=== PATIENT | female | born 1950 | race Asian ===

== ENCOUNTER 2016-09-14 20:38 | Inpatient (IN) | payer MEDICAID ==
--- NOTE | 2016-09-14 21:32 | ED Physician Chart ---
Chief Complaint/HPI - Patient Information Date Seen:: 09/14/16 Time Seen:: 21:28 Chief Complaint:: gi bleed History of Present Illness:: pt sent in by dr solano. pt has had 2 episodes today of bright red blood . 1x this evening of lrg bm/ incontinence of bloody material. also 1x this am they found blood on wall and wondered if she might have had emesis but cant get clear story. pt was seen and evald at [facility] 2 days ago but was released to home. no recent fever, no uri sx. no cp. no sob. pt has DM but is often noncompliant w her metformin due to it causes palpitations. Allergies:: Allergies Allergy/AdvReac Type Severity Reaction Status Date / Time No Known Allergies Allergy Verified 09/14/16 20:43 Vitals:: Vital Signs - 8 hr 09/14/16 20:40 Temp 99.1 F HR 98 RR 18 BP 112/66 O2 Sat % 96 Historian:: Patient, Other Review of Systems - Review of Systems General/Constitutional: No fever, No chills, No weight loss, Weakness, No diaphoresis, No edema, No loss of appetite Skin: No skin lesions, No rash, No bruising Head: No headache, No light-headedness Eyes: No loss of vision, No pain, No diplopia ENT: No earache, No nasal drainage, No sore throat, No tinnitus Neck: No neck pain, No swelling, No thyromegaly, No stiffness, No mass noted Cardio Vascular: No chest pain, No palpitations, No PND, No orthopnea, No edema Pulmonary: No SOB, No cough, No sputum, No wheezing GI: No nausea, No vomiting, No diarrhea, No pain, No melena, Hematochezia, No constipation, No hematemesis G/U: No dysuria, No frequency, No hematuria Musculoskeletal: No bone or joint pain, No back pain, No muscle pain Endocrine: No polyuria, No polydipsia Psychiatric: No prior psych history, No depression, No anxiety, No suicidal ideation Hematopoietic: No bruising, No lymphadenopathy Allergic/Immuno: No urticaria, No angioedema Neurological: No syncope, No focal symptoms, No weakness, No paresthesia, No headache, No seizure, No dizziness, No confusion, No vertigo Past Medical History - Past Medical History Past Medical History: HTN, DM, Dyslipidemia Social History: Other (lives home//has caregiveer) Psychiatricy History: Schizophrenia, Bipolar Medication: Reviewed Family Medical History - Family Member Mother History Unknown: Yes Ethnicity: Non- Living Status: Unknown Hx Family Cancer: No Hx Family Coronary Artery Disease: No Hx Family Congestive Heart Failure: No Hx Family Hypertension: No Hx Family Stroke: No Hx Family Diabetes: No Hx Family Seizures: No Hx Family Dementia: No Hx Family AIDS: No Hx Family HIV: No Hx Family COPD: No Hx Family Hepatitis: No Hx Family Psychiatric Problems: No Hx Family Tuberculosis: No Physical Exam - Physical Examination General/Constitutional: Awake, Well-developed, well-nourished, Alert, No distress, GCS 15, Non-toxic appearing, Ambulatory Head: Atraumatic Eyes: Lids, conjuctiva normal, PERRL, EOMI Skin: Nl inspection, No rash, No skin lesions, No ecchymosis, Well hydrated, No lymphadenopathy ENMT: External ears, nose nl, Nasal exam nl, Lips, teeth, gums nl Neck: Nontender, Full ROM w/o pain, No JVD, No nuchal rigidity, No bruit, No mass, No stridor Respiratory: Nl effort/Exclusion, Clear to Auscultation, No Wheeze/Rhonchi/Rales Cardio Vascular: RRR, No murmur, gallop, rubs, NL S1 S2 GI: No tenderness/rebounding/guarding, No organomegaly, No hernia, Normal BS's, Nondistended, No mass/bruits, No McBurney tenderness : No CVA tenderness Extremities: No tenderness or effusion, Full ROM, normal strength in all extremities, No edema, Normal digits & nails Neuro/Psych: Alert/oriented, DTR's symmetric, Normal sensory exam, Normal motor strength, Judgement/insight normal, Mood normal, Normal gait, No focal deficits Other Neuro/Psych comments:: pt speaks no/min bengali but is baseline per caregiver. Misc: normal gait, Normal back, No paraspinal tenderness Labs/Radiology/EKG Results - Lab Results Results: Laboratory Tests 09/14/16 09/14/16 09/14/16 21:38 21:38 21:38 WBC 5.9 RBC 3.46 L Hgb 10.2 L Hct 31.0 L MCV 89.5 MCH 29.4 MCHC Differential 32.8 RDW 13.7 Plt Count 241 MPV 7.3 Neutrophils % 72.2 Lymphocytes % 15.8 L Monocytes % 10.3 H Eosinophils % 0.8 Basophils % 0.9 PT 10.0 INR 0.96 PTT (Actin FS) 29.0 Sodium 134 L Potassium 4.2 Chloride 109 H Carbon Dioxide 22.6 Anion Gap 6.6 L BUN 15 Creatinine 0.8 Est GFR ( Amer) > 60.0 Est GFR (Non-Af Amer) > 60.0 BUN/Creatinine Ratio 18.8 Glucose 121 H Calcium 9.3 Total Bilirubin 0.2 L AST 22 ALT 11 Alkaline Phosphatase 40 Troponin I Total Protein 6.3 Albumin 3.9 Globulin 2.4 Albumin/Globulin Ratio 1.6 Blood Type Antibody Screen 09/14/16 09/14/16 21:38 21:38 WBC RBC Hgb Hct MCV MCH MCHC Differential RDW Plt Count MPV Neutrophils % Lymphocytes % Monocytes % Eosinophils % Basophils % PT INR PTT (Actin FS) Sodium Potassium Chloride Carbon Dioxide Anion Gap BUN Creatinine Est GFR ( Amer) Est GFR (Non-Af Amer) BUN/Creatinine Ratio Glucose Calcium Total Bilirubin AST ALT Alkaline Phosphatase Troponin I 0.02 Total Protein Albumin Globulin Albumin/Globulin Ratio Blood Type AB POSITIVE Antibody Screen NEGATIVE - EKG Interpretations EKG Time:: 21:40 Rate & Rhythm: nsr 90 Haslett: 25 Intervals: qrs 410 Comments:: interventric cond delay w T inversions across whole precordium...could be developing LBBB but not typical (trop added to labs to r/o acute ischemia , though clinical hx doesnt seem likely scenario) Assessment - Assessment Critical Care Time: 90 Excludes all billable procedures: Yes This condition life threatening/high prob of deterioration: Yes ED Septic Shock - . Is Septic Shock (SBP<90, OR Lactate>4 mmol\L) present?: No - <6hrs of presentation: Vital Signs: Vital Signs - 8 hr 09/14/16 20:40 Temp 99.1 F HR 98 RR 18 BP 112/66 O2 Sat % 96 Reassessment (Disposition) - Reassessment Reassessment:: case dw dr miller will admit. (1;43am) Reassessment Condition:: Unchanged - Diagnosis Diagnosis:: gi bleed - Patient Disposition Admitted to:: Telemetry Condition at Disposition:: Unchanged
[2016-09-14 21:48] LABS: % BASOPHILS 0.9 % (0.0-2.0); % EOSINOPHILS 0.8 % (0.0-5.0); % LYMPHOCYTES 15.8 % (20.0-50.0); % MONOCYTES 10.3 % (2.0-10.0); % NEUTROPHILS 72.2 % (40.0-80.0); HEMOGLOBIN 10.2 gm/dL (11.7-15.5); MEAN CELL VOLUME 89.5 fl (81-100); MEAN CORPUSCULAR HEMOGLOBIN 29.4 pg (27.0-31.0); MEAN CORPUSCULAR HGB CONC 32.8 pg (28.0-36.0); MEAN PLATELET VOLUME 7.3 fl; NEUTROPHILE ABSOLUTE 4.3 Th/cmm (1.8-8.0); PLATELET COUNT 241 Th/cmm (150-400); RED BLOOD COUNT 3.46 Mil/cmm (3.80-5.10); RED CELL DISTRIBUTION WIDTH 13.7 % (11.5-20.0); WHITE BLOOD COUNT 5.9 Th/cmm (4.8-10.8)
[2016-09-14 22:05] LABS: ALB/GLOB RATIO 1.6 (1.0-1.8); ALKALINE PHOSPHATASE 40 U/L (34-104); ANION GAP 6.6 (7.0-16.0); BILIRUBIN,TOTAL 0.2 mg/dL (0.3-1.0); BUN - UREA NITROGEN 15 mg/dL (7-25); BUN/CREATININE RATIO 18.8; CALCIUM SERUM 9.3 mg/dL (8.6-10.3); CARBON DIOXIDE 22.6 mEq/L (21.0-31.0); CHLORIDE 109 mEq/L (98-107); CREATININE - SERUM 0.8 mg/dL (0.6-1.2); GLUCOSE 121 mg/dL (70-105); POTASSIUM SERUM 4.2 mEq/L (3.5-5.1); SGOT 22 U/L (13-39); SGPT/ALT 11 U/L (7-52); SODIUM SERUM 134 mEq/L (136-145)
[2016-09-14 22:28] LABS: INR 0.96 (0.5-1.4)
[2016-09-15] MEDS: D5-0.45NS 1,000 ML IV SCH ×2 (03:13→18:52)
[2016-09-15 07:14] LABS: % BASOPHILS 0.1 % (0.0-2.0); HEMOGLOBIN 9.7 gm/dL (11.7-15.5); NEUTROPHILE ABSOLUTE 3.6 Th/cmm (1.8-8.0); RED CELL DISTRIBUTION WIDTH 13.6 % (11.5-20.0); WHITE BLOOD COUNT 5.1 Th/cmm (4.8-10.8)
[2016-09-15 07:21] LABS: % EOSINOPHILS 1.5 % (0.0-5.0); % LYMPHOCYTES 17.3 % (20.0-50.0); % NEUTROPHILS 71.1 % (40.0-80.0); HEMATOCRIT 29.4 % (35.0-45.0); MEAN CELL VOLUME 89.7 fl (81-100); MEAN CORPUSCULAR HEMOGLOBIN 29.6 pg (27.0-31.0); MEAN PLATELET VOLUME 7.7 fl; PLATELET COUNT 224 Th/cmm (150-400); RED BLOOD COUNT 3.28 Mil/cmm (3.80-5.10)
[2016-09-15 07:30] LABS: ALB/GLOB RATIO 1.6 (1.0-1.8); ALKALINE PHOSPHATASE 36 U/L (34-104); ANION GAP 4.1 (7.0-16.0); BILIRUBIN,TOTAL 0.3 mg/dL (0.3-1.0); BUN - UREA NITROGEN 10 mg/dL (7-25); BUN/CREATININE RATIO 14.3; CALCIUM SERUM 8.9 mg/dL (8.6-10.3); CARBON DIOXIDE 22.6 mEq/L (21.0-31.0); CHLORIDE 114 mEq/L (98-107); CREATININE - SERUM 0.7 mg/dL (0.6-1.2); GLUCOSE 121 mg/dL (70-105); POTASSIUM SERUM 3.7 mEq/L (3.5-5.1); SGOT 19 U/L (13-39); SGPT/ALT 15 U/L (7-52); SODIUM SERUM 137 mEq/L (136-145)
[2016-09-15 07:37] LABS: INR 0.95 (0.5-1.4); PROTHROMBIN TIME (TEST) 9.9 SECONDS (9.5-11.5)
[2016-09-15] MEDS ORDERED: Promethazine DM 6.25/15mg-5mL 5 ML SYR PO PRN (09:32)
[2016-09-15] MEDS ORDERED: cefTRIAXone 1 GM in Sodium Chloride 0.9% 50 ML IV SCH (10:00)
[2016-09-15] MEDS ORDERED: Azithromycin 500 MG in Sodium Chloride 0.9% 250 ML IV SCH (10:00)
[2016-09-15] MEDS: Benztropine 1 MG TAB PO SCH ×2 (10:21→18:48)
--- NOTE | 2016-09-15 14:34 | Diagnostic Imaging Report ---
Portable chest x-ray HISTORY: Shortness of breath The heart is enlarged. No focal pulmonary processes. No evidence of pleural fluid. There is a dilated air-filled stomach along with several dilated loops of bowel. Significance should be correlated clinically. IMPRESSION: 1. No acute focal pulmonary processes 2. Suggestion of cardiomegaly 3. Somewhat distended air-filled stomach along with several mildly dilated loops of bowel. Significance should be correlated clinically.
--- NOTE | 2016-09-15 15:29 | Diagnostic Imaging Report ---
Portable chest x-ray HISTORY: Cough Compared to prior exam of September 14, 2016, the heart is enlarged. No focal bony processes. No hilar or mediastinal abdomen. IMPRESSION: 1. Cardiomegaly 2. No focal pulmonary processes 3. Previously noted dilated stomach and bowel is less conspicuous at this time.
[2016-09-16 08:13] LABS: IRON SATURATION 6 % (15-55); TIBC (LCI) 267 ug/dL (250-450); UIBC 251 ug/dL (118-369)
== END 2016-09-16 00:04 | disposition short-term general hospital (02) | DRG 253 ==
LOC: ER 20:38 → TELE 09-15 01:44
PROVIDERS: ADMIT Internal Medicine; ATTEND Internal Medicine
DX: K62.5 Hemorrhage of anus and rectum (principal); I10 Essential (primary) hypertension; F20.9 Schizophrenia, unspecified; D64.9 Anemia, unspecified; E11.9 Type 2 diabetes mellitus without complications; E78.5 Hyperlipidemia, unspecified; F31.9 Bipolar disorder, unspecified; I44.7 Left bundle-branch block, unspecified; Z91.14 Patient's other noncompliance with medication regimen
CPT/HCPCS: 36415-UA; 71010-TC; 80053-TC; 82140-TC; 82378-90; 83540-90; 83550-90; 84484-TC; 85025-TC; 85610-TC; 85730-TC; 86850-TC; 86900-TC; 86901-TC; 93005; C9113; J0456; J0696; Z7502; Z7610